=== PATIENT | male | born 1945 | race Caucasian/White ===

== ENCOUNTER 2017-07-17 10:02 | Emergency (ER) | payer MEDICARE, BC ==
[2017-07-17] MEDS ORDERED: HYDROcodone/Acetaminophen 10/325 mg Tablet ONE (10:40)
[2017-07-17] MEDS ORDERED: Ibuprofen 800 MG TAB ONE (10:40)
[2017-07-17] MEDS ORDERED: Sulfameth/Trimethoprim DS 800-160mg TAB ONE (10:40)
--- NOTE | 2017-07-17 12:11 | RAD ---
LEFT KNEE FOUR VIEWS: Date: 07-17-17 FINDINGS: No fracture or joint effusion was appreciated. There does appear to be some soft tissue swelling ante rior to the knee. Some mild degenerative changes are present consisting of a few small osteophytes. T he medial joint space is marginally narrowed. In the absence of a large amount of joint fluid, program management intern al injury probabilities are lowered. IMPRESSION: Soft tissue swelling and mild degenerative change with no acute bony finding. POS: HOME
== END 2017-07-17 11:43 | disposition home or self-care (01) ==
LOC: BURERS 10:02
DX: S80.02XA Contusion of left knee, initial encounter (principal); L03.116 Cellulitis of left lower limb; I10 Essential (primary) hypertension; Z85.46 Personal history of malignant neoplasm of prostate; Z87.891 Personal history of nicotine dependence; W01.0XXA Fall on same level from slipping, tripping and stumbling without subsequent striking against object, initial encounter; Y99.0 Civilian activity done for income or pay